=== PATIENT | female | born 1960 | race Caucasian/White ===

== ENCOUNTER 2020-12-20 20:12 | Inpatient (IN) | payer MEDICAID, OTHER ==
[~2020-12-20] VITALS: Ht 142.2 cm; Wt 64.9 kg
[~2020-12-20 20:12] MED LIST: AMLO2.5T45 PO; ASPI-1497 PO; CARV12.545 PO; PROC10TA13 PO
[2020-12-20 22:26] LABS: CHLORIDE 95 mEq/L (98-107)
[2020-12-20 22:31] LABS: INR 1.1; PARTIAL THROMBOPLASTIN TIME 29.7 sec (23.4-31.0); PROTHROMBIN TIME 11.5 sec (9.6-11.0)
[2020-12-20 22:44] LABS: BASOPHILS % 1.2 % (0.0-2.0); EOSINOPHILS % 3.6 % (0.0-5.0); HEMATOCRIT. 26.9 % (36.0-48.0); HEMOGLOBIN. 8.7 g/dL (12.0-16.0); LYMPHOCYTES % 12.4 % (20.0-50.0); MEAN CORPUSCULAR HEMOGLOBIN 29.6 pg (28.0-32.0); MEAN CORPUSCULAR VOLUME 91.9 fL (81.0-99.0); MEAN PLATELET VOLUME 7.9 fl (7.4-10.4); NEUTROPHILS % 72.8 % (40.0-76.0); PLATELET 217 x1000/uL (130-400); RED BLOOD CELL COUNT 2.93 mill/uL (4.2-5.4); RED CELL DISTRIBUTION WIDTH 18.7 % (11.6-14.6)
[2020-12-21] VITALS (63 sets, daily range): BP systolic 54–156; BP diastolic 21–81
[2020-12-21] MEDS ORDERED: THROMBIN (BOVINE) 5000 UNITS/VIAL TOP ONE
[2020-12-21] MEDS ORDERED: DESMOPRESSIN ACETATE 4MCG/ML AMP IV ONE (00:15)
[2020-12-21 01:00] LABS: MEAN CORPUSCULAR HEMOGLOBIN 29.5 pg (28.0-32.0); MEAN CORPUSCULAR VOLUME 94.9 fL (81.0-99.0); PLATELET 181 x1000/uL (130-400); RED BLOOD CELL COUNT 1.76 mill/uL (4.2-5.4); RED CELL DISTRIBUTION WIDTH 19.4 % (11.6-14.6)
[2020-12-21 01:15] LABS: HEMOGLOBIN 5.2 g/dL (12.0-16.0)
[2020-12-21 01:16] LABS: HEMATOCRIT 16.7 % (36.0-48.0)
[2020-12-21] MEDS ORDERED: MORPHINE SULFATE 4 MG/ML CPJ (NOT FOR IM USE) IV ONE (01:45)
[2020-12-21] MEDS ORDERED: ONDANSETRON HCL 4MG/2ML INJ IV ONE (01:45)
[2020-12-21] MEDS ORDERED: MORPHINE SULFATE 2 MG/ML CPJ (NOT FOR IM USE) IV PRN (03:00)
[2020-12-21] MEDS ORDERED: HYDROCODONE/ACETAMINOPHEN 5/325MG TABLET PO PRN (03:00)
[2020-12-21] MEDS ORDERED: MAGNESIUM/ALUMINUM HYDROXIDE/SIMETHICONE 30ML UDC PO PRN (03:00)
[2020-12-21] MEDS ORDERED: NA PHOS,M-B/NA PHOS,DI-BA ENEMA 118ML PR PRN (03:00)
[2020-12-21] MEDS ORDERED: IPRATROPIUM/ALBUTEROL 0.5-3(2.5)MG/3ML NEB NEB PRN (03:00)
[2020-12-21] MEDS ORDERED: LORAZEPAM 2MG/ML CPJ IV PRN (03:00)
[2020-12-21] MEDS ORDERED: GUAIFENESIN 200MG/10ML SUGAR FREE UDC PO PRN (03:00)
[2020-12-21] MEDS ORDERED: DOCUSATE SODIUM 100MG CAPSULE PO PRN (03:00)
[2020-12-21] MEDS ORDERED: DIPHENHYDRAMINE 50MG/ML VIAL IV PRN (03:00)
[2020-12-21] MEDS ORDERED: ONDANSETRON HCL 4MG/2ML INJ IV PRN (03:00)
[2020-12-21] MEDS ORDERED: NOREPINEPHRINE 32 MG in DEXT 5% WATER 218 ML IV PRN (03:45)
[2020-12-21] MEDS: SODIUM CHLORIDE 0.45% 1,000 ML IV SCH (04:55)
[2020-12-21 05:35] LABS: BASOPHILS % 0.7 % (0.0-2.0); EOSINOPHILS % 1.4 % (0.0-5.0); HEMOGLOBIN. 7.5 g/dL (12.0-16.0); LYMPHOCYTES % 7.9 % (20.0-50.0); MEAN CORPUSCULAR HEMOGLOBIN 26.3 pg (28.0-32.0); MEAN CORPUSCULAR VOLUME 83.5 fL (81.0-99.0); MEAN PLATELET VOLUME 7.9 fl (7.4-10.4); MONOCYTES % 6.5 % (2.0-8.0); NEUTROPHILS % 83.5 % (40.0-76.0); PLATELET 193 x1000/uL (130-400); RED BLOOD CELL COUNT 2.87 mill/uL (4.2-5.4); RED CELL DISTRIBUTION WIDTH 26.6 % (11.6-14.6)
[2020-12-21 09:07] LABS: PLATELET ESTIMATE NORMAL
[2020-12-21] MEDS: ACETAMINOPHEN 325MG TABLET PO PRN (09:23)
[2020-12-21 16:16] LABS: HEMATOCRIT 22.3 % (36.0-48.0); HEMOGLOBIN 7.3 g/dL (12.0-16.0); MEAN CORPUSCULAR HEMOGLOBIN 27.8 pg (28.0-32.0); PLATELET 122 x1000/uL (130-400); RED BLOOD CELL COUNT 2.62 mill/uL (4.2-5.4); RED CELL DISTRIBUTION WIDTH 24.3 % (11.6-14.6)
[2020-12-22] VITALS (61 sets, daily range): BP systolic 118–177; BP diastolic 48–82
[2020-12-22] MEDS: SODIUM CHLORIDE 0.45% 1,000 ML IV SCH (03:42)
[2020-12-22 06:12] LABS: EOSINOPHILS % 3.8 % (0.0-5.0); HEMATOCRIT. 22.3 % (36.0-48.0); HEMOGLOBIN. 7.2 g/dL (12.0-16.0); LYMPHOCYTES % 18.3 % (20.0-50.0); MEAN CORPUSCULAR HEMOGLOBIN 27.3 pg (28.0-32.0); MEAN PLATELET VOLUME 8.2 fl (7.4-10.4); MONOCYTES % 9.5 % (2.0-8.0); NEUTROPHILS % 67.4 % (40.0-76.0); PLATELET 141 x1000/uL (130-400); RED BLOOD CELL COUNT 2.63 mill/uL (4.2-5.4); RED CELL DISTRIBUTION WIDTH 24.2 % (11.6-14.6)
[2020-12-22 06:20] LABS: CHLORIDE 101 mEq/L (98-107)
[2020-12-22 06:29] LABS: LDL CHOLESTEROL 34 mg/dL (5-100)
[2020-12-22 06:30] LABS: HDL CHOLESTEROL 29 mg/dL (40-59); T4 FREE 1.32 ng/dL (0.76-1.46)
[2020-12-22] MEDS: DEXT 5%/0.45% NACL 1000ML 1,000 ML IV SCH (09:55)
[2020-12-22] MEDS ORDERED: BACITRACIN 15GM TUBE TOP ONE (16:12)
[2020-12-22] MEDS ORDERED: THROMBIN (BOVINE) 5000 UNITS/VIAL TOP ONE (16:13)
[2020-12-22] MEDS ORDERED: HEPARIN SODIUM 1,000 UNIT/1ML VIAL IV ONE ×2 (16:13→16:33)
[2020-12-22] MEDS ORDERED: BUPIVACAINE HCL/PF 0.5% (5MG/ML) 10ML ONE ×2 (16:13→16:14)
[2020-12-22] MEDS ORDERED: LIDOCAINE HCL 1% 20ML VIAL (Pyxis) INJ ONE (16:13)
[2020-12-22] MEDS ORDERED: SODIUM CHLORIDE 0.9% 1,000 ML ONE (16:14)
[2020-12-22] MEDS ORDERED: BACITRACIN 50,000 UNITS/VIAL ONE (16:14)
[2020-12-22] MEDS ORDERED: ROPIVACAINE HCL 10MG/ML 20 ML VIAL EPI ONE (16:29)
[2020-12-22] MEDS ORDERED: MIDAZOLAM HCL 2 MG/2 ML VIAL ONE (16:33)
[2020-12-22] MEDS ORDERED: FENTANYL CITRATE/PF 50MCG/ML 2ML VIAL ONE (16:33)
[2020-12-22] MEDS ORDERED: PROPOFOL 200MG/20ML VIAL IV ONE (16:33)
[2020-12-22] MEDS ORDERED: HEPARIN 5000 UNITS/ML VIAL ONE (17:04)
[2020-12-22] MEDS ORDERED: DEXAMETHASONE 4MG/ML 1ML VIAL ONE (17:06)
[2020-12-22] MEDS ORDERED: ONDANSETRON HCL 4MG/2ML INJ ONE (17:06)
[2020-12-22] MEDS ORDERED: ONDANSETRON HCL 4MG/2ML INJ IV PRN ×3 (17:15→17:30)
[2020-12-22] MEDS ORDERED: HYDROMORPHONE HCL/PF 2MG/ML CPJ IV PRN ×3 (17:15→17:30)
[2020-12-22] MEDS ORDERED: MEPERIDINE HCL/PF 25MG/ML CPJ IV PRN ×3 (17:15→17:30)
[2020-12-22] MEDS ORDERED: LABETALOL 5MG/ML SYR 20 MG/4 ML SYRINGE IV PRN ×3 (17:15→17:30)
[2020-12-22] MEDS ORDERED: SKIN ADHESIVE 0.7 GM EA TOP ONE (17:59)
[2020-12-22] MEDS ORDERED: DEXTROSE 50% WATER 50ML SYRINGE IV PRN (20:45)
[2020-12-22 20:53] LABS: HEMATOCRIT 30.9 % (36.0-48.0); HEMOGLOBIN 9.7 g/dL (12.0-16.0)
[2020-12-22] MEDS: BLOOD SUGAR DIAGNOSTIC STRIP TEST SCH (21:00)
[2020-12-22] MEDS: INSULIN LISPRO 100 UNITS/ML SUBCUT SCH (21:00)
[2020-12-22] MEDS: CLONIDINE 0.1MG TABLET PO PRN (22:04)
[2020-12-23] VITALS (63 sets, daily range): BP systolic 100–168; BP diastolic 27–96
[2020-12-23 05:47] LABS: HEMATOCRIT. 27.5 % (36.0-48.0); HEMOGLOBIN. 8.9 g/dL (12.0-16.0); MEAN CORPUSCULAR HEMOGLOBIN 28.1 pg (28.0-32.0); MEAN CORPUSCULAR VOLUME 86.7 fL (81.0-99.0); MEAN PLATELET VOLUME 8.3 fl (7.4-10.4); PLATELET 162 x1000/uL (130-400); RED BLOOD CELL COUNT 3.17 mill/uL (4.2-5.4); RED CELL DISTRIBUTION WIDTH 22.1 % (11.6-14.6)
[2020-12-23] MEDS: BLOOD SUGAR DIAGNOSTIC STRIP TEST SCH ×4 (06:30→21:00)
[2020-12-23] MEDS: INSULIN LISPRO 100 UNITS/ML SUBCUT SCH ×4 (06:49→21:00)
[2020-12-23 08:14] LABS: PLATELET ESTIMATE NORMAL
[2020-12-23] MEDS: DEXT 5%/0.45% NACL 1000ML 1,000 ML IV SCH (15:21)
[2020-12-23] MEDS: CLONIDINE 0.1MG TABLET PO PRN (16:01)
[2020-12-24] VITALS (7 sets, daily range): BP systolic 145–204; BP diastolic 61–91
[2020-12-24 06:25] LABS: BASOPHILS % 1.3 % (0.0-2.0); EOSINOPHILS % 2.5 % (0.0-5.0); HEMATOCRIT. 25.2 % (36.0-48.0); HEMOGLOBIN. 8.2 g/dL (12.0-16.0); LYMPHOCYTES % 13.2 % (20.0-50.0); MEAN CORPUSCULAR HEMOGLOBIN 28.3 pg (28.0-32.0); MEAN CORPUSCULAR VOLUME 86.6 fL (81.0-99.0); MONOCYTES % 8.6 % (2.0-8.0); NEUTROPHILS % 74.4 % (40.0-76.0); PLATELET 162 x1000/uL (130-400); RED BLOOD CELL COUNT 2.91 mill/uL (4.2-5.4)
[2020-12-24] MEDS: BLOOD SUGAR DIAGNOSTIC STRIP TEST SCH ×4 (06:47→20:56)
[2020-12-24] MEDS: INSULIN LISPRO 100 UNITS/ML SUBCUT SCH ×4 (06:47→20:56)
[2020-12-24] MEDS: DEXT 5%/0.45% NACL 1000ML 1,000 ML IV SCH (09:46)
[2020-12-25] VITALS: BP 158/76
[2020-12-25 04:00] VITALS: BP 166/82
[2020-12-25] MEDS: CLONIDINE 0.1MG TABLET PO PRN ×2 (06:55→13:04)
[2020-12-25] MEDS: BLOOD SUGAR DIAGNOSTIC STRIP TEST SCH ×2 (07:46→13:05)
[2020-12-25] MEDS: INSULIN LISPRO 100 UNITS/ML SUBCUT SCH ×2 (07:46→12:50)
[2020-12-25 08:00] VITALS: BP 172/82
[2020-12-25] MEDS: DEXT 5%/0.45% NACL 1000ML 1,000 ML IV SCH (09:23)
[2020-12-25 12:00] VITALS: BP 162/76
[2020-12-25] MEDS ORDERED: AMLODIPINE 5MG TABLET PO SCH (12:00)
[2020-12-25] MEDS ORDERED: CARVEDILOL 12.5MG TABLET PO SCH (12:00)
[2020-12-25] MEDS: ACETAMINOPHEN 325MG TABLET PO PRN (13:04)
[2020-12-25 14:42] VITALS: BP 142/56
== END 2020-12-25 18:18 | disposition home or self-care (01) | DRG 180 ==
LOC: ER 20:22 → MICUSO 12-21 01:25 → ENRESERV 12-21 02:40 → MICUSO 12-21 03:45 → 6WST 12-23 15:30
PROVIDERS: ADMIT Internal Medicine; ATTEND Internal Medicine
PROC: 02HV33Z Insertion of Infusion Device into Superior Vena Cava, Percutaneous Approach (ICD-10-PCS; 2020-12-21)
PROC: 30233N1 Transfusion of Nonautologous Red Blood Cells into Peripheral Vein, Percutaneous Approach (ICD-10-PCS; 2020-12-21)
PROC: 031C09F Bypass Left Radial Artery to Lower Arm Vein with Autologous Venous Tissue, Open Approach (ICD-10-PCS; principal; 2020-12-22)
PROC: 5A1D70Z Performance of Urinary Filtration, Intermittent, Less than 6 Hours Per Day (ICD-10-PCS; 2020-12-22)
PROC: 5A1D70Z Performance of Urinary Filtration, Intermittent, Less than 6 Hours Per Day (ICD-10-PCS; 2020-12-24)
DX: T82.838A Hemorrhage due to vascular prosthetic devices, implants and grafts, initial encounter (principal); I21.4 Non-ST elevation (NSTEMI) myocardial infarction; D62 Acute posthemorrhagic anemia; N18.6 End stage renal disease; R57.8 Other shock; I13.2 Hypertensive heart and chronic kidney disease with heart failure and with stage 5 chronic kidney disease, or end stage renal disease; E11.22 Type 2 diabetes mellitus with diabetic chronic kidney disease; E11.69 Type 2 diabetes mellitus with other specified complication; E86.0 Dehydration; I25.10 Atherosclerotic heart disease of native coronary artery without angina pectoris; I50.9 Heart failure, unspecified; Y84.1 Kidney dialysis as the cause of abnormal reaction of the patient, or of later complication, without mention of misadventure at the time of the procedure; G93.41 Metabolic encephalopathy; R65.10 Systemic inflammatory response syndrome (SIRS) of non-infectious origin without acute organ dysfunction; Z20.822 Contact with and (suspected) exposure to COVID-19; E44.1 Mild protein-calorie malnutrition; M86.8X8 Other osteomyelitis, other site; L98.9 Disorder of the skin and subcutaneous tissue, unspecified; Z99.2 Dependence on renal dialysis; Z79.82 Long term (current) use of aspirin; Z79.899 Other long term (current) drug therapy; Z68.32 Body mass index [BMI] 32.0-32.9, adult
CPT/HCPCS: 36415; 36556; 71045; 76937; 80048; 80053; 80061; 82962; 83036; 84439; 84443; 84484; 85014; 85018; 85025; 85027; 86850; 86900; 86920; 87426; 93005; 99285; A6261; C1752; C1768; J1100; J1644; J1815; J2250; J2405; J2597; J2704; J2795; J3010; J3490; J7030; J7040; J7050; P9016

== ENCOUNTER 2021-05-18 22:12 | Emergency (ER) | payer MEDICAID ==
[~2021-05-18] VITALS: Ht 157.5 cm; Wt 55.0 kg
[~2021-05-18 22:12] MED LIST changes: -ASPI-1497 PO
[2021-05-19 00:29] LABS: HEMATOCRIT. 28.8 % (36.0-48.0); HEMOGLOBIN. 9.7 g/dL (12.0-16.0); MEAN CORPUSCULAR HEMOGLOBIN 31.3 pg (28.0-32.0); MEAN CORPUSCULAR VOLUME 92.7 fL (81.0-99.0); MEAN PLATELET VOLUME 8.2 fl (7.4-10.4); PLATELET 115 x1000/uL (130-400); RED BLOOD CELL COUNT 3.11 mill/uL (4.2-5.4); RED CELL DISTRIBUTION WIDTH 18.7 % (11.6-14.6)
[2021-05-19 00:51] LABS: CHLORIDE 99 mEq/L (98-107)
[2021-05-19 02:58] VITALS: BP 141/84
[2021-05-19 07:38] LABS: PLATELET ESTIMATE DECREASED
== END 2021-05-19 02:58 | disposition home or self-care (01) ==
LOC: ER 22:12
DX: R53.1 Weakness (principal); N19 Unspecified kidney failure; D64.9 Anemia, unspecified; I10 Essential (primary) hypertension; Z99.2 Dependence on renal dialysis; Z79.899 Other long term (current) drug therapy
CPT/HCPCS: 36415; 71045; 80053; 85025; 93005; 99285